=== PATIENT | male | born 1965 | race Caucasian/White ===

== ENCOUNTER 2019-12-06 08:45 | Observation (INO) ==
[2019-12-06] MEDS ORDERED: Naloxone 0.4 MG/ML INJ IVP PRN (11:43)
[2019-12-06] MEDS ORDERED: Ondansetron ODT 4 MG TAB.RAPDIS SL PRN (11:43)
[2019-12-06] MEDS ORDERED: Aspirin 325 MG TABLET PO ONE (11:45)
[2019-12-06] MEDS ORDERED: Nitroglycerin 0.4 MG TAB.SUBL SL PRN (11:46)
[2019-12-06 13:21] LABS: Chol/HDL Ratio 4.6 (0-4.9); Phosphorous 3.6 mg/dL (2.7-4.5)
[2019-12-06] MEDS ORDERED: tiZANidine 4 MG TABLET PO PRN (14:08)
[2019-12-06] MEDS ORDERED: SUMAtriptan succinate 50 MG TABLET PO PRN (14:08)
[2019-12-06] MEDS: *HR* Heparin 5,000 UNIT/ML VIAL SQ SCH (16:40)
[2019-12-06] MEDS: Metoprolol XL (24 HR) Succ 50 MG TAB.ER.24H PO SCH (20:47)
[2019-12-07 02:26] LABS: Hematocrit 45.6 % (37.5-50.1); Hemoglobin 15.7 g/dL (12.9-16.9); Mean Corpuscular HGB Conc 34.4 g/dL (31.6-35.5); Mean Corpuscular Hemoglobin 31.3 pg (28.0-33.3); Mean Platelet Volume 9.5 fL (9.4-12.4); Platelet Count 201 K/mcL (140-400); Red Blood Count 5.01 M/mcL (4.19-5.50); Red Cell Distribution Width 12.1 % (11.5-14.5); White Blood Count 6.8 K/mcL (4.3-11.1)
[2019-12-07 02:48] LABS: Alanine Aminotransferase 43 Units/L (7-52); Albumin 3.9 g/dL (3.5-5.7); Albumin/Globulin Ratio 2.2 (1.1-2.2); Alkaline Phosphatase 69 Units/L (34-104); Aspartate Amino Transferase 24 Units/L (13-39); BUN/Creatinine Ratio 15 (6-26); Bilirubin,Total 0.5 mg/dL (0.3-1.0); Blood Urea Nitrogen 16 mg/dL (6-20); Carbon Dioxide 27 mEq/L (23-29); Chloride 106 mEq/L (98-107); Globulin 1.8 g/dL (2.4-3.5); Glucose 110 mg/dL (70-105); Osmolality,Calculated 294 (280-300); Potassium 3.7 mEq/L (3.5-5.1); Sodium 141 mEq/L (136-145); Total Protein 5.7 g/dL (6.4-8.9); eGFR For African Americans > 60 (> 60); eGFR For Non-African Americans > 60 (> 60)
[2019-12-07] MEDS ORDERED: Methylphenidate HCl 10 MG TABLET PO SCH (05:00)
[2019-12-07] MEDS: *HR* Heparin 5,000 UNIT/ML VIAL SQ SCH ×2 (05:41→16:43)
[2019-12-07] MEDS ORDERED: Furosemide 40 MG TABLET PO SCH (09:00)
[2019-12-07] MEDS ORDERED: lisinopriL 20 MG TABLET PO SCH (09:00)
[2019-12-07] MEDS ORDERED: Metoprolol 100 MG TABLET PO ONE (10:32)
[2019-12-07] MEDS ORDERED: Isovue-370 500 ML BOTTLE IVP ONE ×2 (10:32→10:36)
[2019-12-07] MEDS ORDERED: 0.9 % Sodium Chloride 1,000 ML IVC SCH (10:45)
[2019-12-07] MEDS ORDERED: Aspirin 81 MG TAB.CHEW PO SCH (10:45)
[2019-12-07 10:58] LABS: Estimated Average Glucose 123 mg/dl; Hemoglobin A1C 5.9 %
[2019-12-07] MEDS ORDERED: Regadenoson 0.4 MG/5 ML SYRINGE IVP ONE (11:54)
[2019-12-07] MEDS: Methylphenidate HCl 10 MG TABLET PO SCH ×2 (12:38→15:01)
[2019-12-07] MEDS: Metoprolol XL (24 HR) Succ 50 MG TAB.ER.24H PO SCH (15:00)
[2019-12-07 16:01] VITALS: BP 146/97
== END 2019-12-07 16:57 | disposition home or self-care (01) ==
LOC: 3BNU → SUATTDRO 11:43
PROVIDERS: ADMIT Family Medicine; ATTEND Internal Medicine